=== PATIENT | male | born 1945 | race African-American/Black ===

== ENCOUNTER 2023-07-23 16:00 | Emergency (ER) | payer OTHER ==
[~2023-07-23] VITALS: Ht 193 cm; Wt 127.0 kg
[2023-07-23 16:10] VITALS: O2SAT 99
[2023-07-23] MEDS ORDERED: AMLODIPINE (16:10)
[2023-07-23] MEDS ORDERED: LISINOPRIL (16:10)
[2023-07-23] MEDS ORDERED: GABAPENTIN (16:10)
[2023-07-23 17:09] LABS: BASOPHILS % 0.3 % (0.0-2.0); EOSINOPHILS % 0.3 % (0.0-5.0); HEMATOCRIT. 41.5 % (42.0-52.0); HEMOGLOBIN. 14.1 g/dL (14.0-18.0); LYMPHOCYTES % 25.8 % (20.0-50.0); MEAN CORPUSCULAR HEMOGLOBIN 28.6 pg (28.0-32.0); MEAN CORPUSCULAR VOLUME 84.1 fL (80.0-94.0); MONOCYTES % 10.2 % (2.0-8.0); NEUTROPHILS % 63.4 % (40.0-76.0); PLATELET 261 x1000/uL (130-400); RED BLOOD CELL COUNT 4.93 mill/uL (4.7-6.1); RED CELL DISTRIBUTION WIDTH 12.4 % (11.6-14.6)
[2023-07-23 17:23] LABS: ALANINE AMINOTRANSFERASE 22 IU/L (10-49); ALBUMIN 4.6 g/dL (3.2-4.8); ASPARTATE AMINOTRANSFERASE 23 IU/L (<34); BILIRUBIN TOTAL 0.5 mg/dL (0.1-1.0); CALCIUM 8.9 mg/dL (8.7-10.4); CARBON DIOXIDE 23 mEq/L (21-32); CHLORIDE 92 mEq/L (98-107); CREATININE 1.2 mg/dL (0.6-1.3); GLUCOSE 106 mg/dL (70-105); POTASSIUM 4.8 mEq/L (3.5-5.1); PROTEIN TOTAL 8.3 g/dL (6.0-8.3); SODIUM 122 mEq/L (136-145); UREA NITROGEN BLOOD 15 mg/dL (9-23)
[2023-07-23 17:25] LABS: TROPONIN I HIGH SENSITIVITY < 4 ng/L (3.0-53)
[2023-07-23] MEDS ORDERED: SODIUM CHLORIDE 0.9% 1,000 ML IV ONE (18:00)
[2023-07-23 20:32] VITALS: BP 160/92; PULSE 83; RESP 18; TEMP 98.5
== END 2023-07-23 20:38 | disposition home or self-care (01) ==
LOC: ER 16:00 → CANBEDREQ 07-26 01:19
DX: E87.1 Hypo-osmolality and hyponatremia (principal); I10 Essential (primary) hypertension; Z86.73 Personal history of transient ischemic attack (TIA), and cerebral infarction without residual deficits
CPT/HCPCS: 99284; 71045; 80053; 85025; 84484; 36415; J7030

== ENCOUNTER 2024-11-08 10:21 | Emergency (ER) | payer OTHER ==
[~2024-11-08] VITALS: Ht 172.7 cm; Wt 91.0 kg
[~2024-11-08 10:21] MED LIST: AMLODIPINE; GABAPENTIN; LISINOPRIL
[2024-11-08 10:29] VITALS: O2SAT 98
[2024-11-08 10:56] LABS: HEMATOCRIT 42.6 % (42.0-52.0); HEMOGLOBIN 14.3 g/dL (14.0-18.0); MEAN CORPUSCULAR HEMOGLOBIN 28.1 pg (28.0-32.0); MEAN CORPUSCULAR HGB CONC 33.5 g/dL (31.0-37.0); PLATELET 222 x1000/uL (130-400); RED BLOOD CELL COUNT 5.08 mill/uL (4.7-6.1); RED CELL DISTRIBUTION WIDTH 14.1 % (11.6-14.6); WHITE BLOOD COUNT 6.2 x1000/uL (4.5-11.0)
[2024-11-08 11:09] LABS: PARTIAL THROMBOPLASTIN TIME 27.6 sec (23.4-31.0)
[2024-11-08 12:11] LABS: TROPONIN I HIGH SENSITIVITY < 4 ng/L (3.0-53)
[2024-11-08 12:13] LABS: CHLORIDE 105 mEq/L (98-107); POTASSIUM 4.4 mEq/L (3.5-5.1); SODIUM 138 mEq/L (136-145)
[2024-11-08 12:13] LABS: CLARITY URINE CLEAR (CLEAR); COLOR URINE YELLOW (YELLOW); GLUCOSE URINE NEGATIVE (NEGATIVE); KETONES URINE TRACE (NEGATIVE); LEUKOCYTE ESTERASE URINE NEGATIVE (NEGATIVE); NITRITE URINE NEGATIVE (NEGATIVE); OCCULT BLOOD URINE NEGATIVE (NEGATIVE); PROTEIN URINE NEGATIVE (NEGATIVE); SPECIFIC GRAVITY URINE 1.021 (1.005-1.030); UROBILINOGEN URINE 0.2 E.U./dL (0.2-1.0)
[2024-11-08 12:14] LABS: CARBON DIOXIDE 25 mEq/L (21-32)
[2024-11-08 12:15] LABS: CALCIUM 8.9 mg/dL (8.7-10.4)
[2024-11-08 12:19] LABS: CREATININE 1.1 mg/dL (0.6-1.3); GLUCOSE 108 mg/dL (70-105)
[2024-11-08 12:20] LABS: UREA NITROGEN BLOOD 14 mg/dL (9-23)
[2024-11-08] MEDS: CLONIDINE 0.1MG TABLET PO NR (12:57)
[2024-11-08] MEDS: ASPIRIN 325MG EC TABLET PO NR (12:57)
[2024-11-08 13:07] LABS: TROPONIN I HIGH SENSITIVITY 4 ng/L (3.0-53)
[2024-11-08 15:20] VITALS: BP 159/89; PULSE 88; RESP 14; TEMP 37.2; O2SAT 95
== END 2024-11-08 15:34 | disposition home or self-care (01) ==
LOC: ER 10:21
DX: R00.2 Palpitations (principal); R07.89 Other chest pain; I10 Essential (primary) hypertension; Z86.73 Personal history of transient ischemic attack (TIA), and cerebral infarction without residual deficits; Z79.899 Other long term (current) drug therapy
CPT/HCPCS: 36415; 71045; 80048; 81003; 84484; 85027; 93005; 99285